=== PATIENT | female | born 1950 | race Caucasian/White ===

== ENCOUNTER 2016-07-01 02:15 | Emergency (ER) | payer MEDICARE, BC ==
--- NOTE | ~2016-07-01 | CR21 ---
[facility] A Service of [facility] & [facility] RADIOLOGY TEXT RESULTS PATIENT: THERESA MACIAS LOCATION: [facility] : 54 UNIT #: [id number] AGE: [address]: Gisselle Arauz APRN SEX: F ORDER DR: [id number] [facility] [address] [place], [place] [address] [id number] E MR#: [id number] Acc #: [id number] NAME: THERESA MACIAS. : 1950 SEX: F STUDY DATE/TIME: 07/01/2016 1:13 UNIT: [facility] ROOM: STUDY DESCRIPTION: CR Ankle Min 3 Views Rt Attending Physician: Gisselle Arauz A.P.R.N. Ordering Physician: Ed Doctor [id number] [facility] Primary Care Physician: Musa Herrera Aprn MEDICAL IMAGING REPORT This report is preliminary unless electronic signature is present EXAM Three-view right ankle HISTORY Tripped and fell at home tonight. Foot and ankle pain. Soft tissue swelling. FINDINGS 3 views of the right ankle demonstrates no acute fracture or dislocation. Mild soft tissue swelling over the midfoot. Please see separate right foot report for details. The talus and subtalar joint unremarkable. IMPRESSION 1. Negative right ankle. 2. Soft tissue swelling over the midfoot. Please see separate report of right foot for details. Dictated by... Kathleen Juarez M.D. THIS IS AN ELECTRONICALLY VERIFIED REPORT Kathleen Juarez M.D. at 07/01/2016 9:58 PM Partha TD: 07/01/2016 09:36 JOB #: [id number] MEDICAL IMAGING REPORT Page 1 of 1 COPY
--- NOTE | ~2016-07-01 | CR127 ---
[facility] A Service of [facility] RADIOLOGY TEXT RESULTS PATIENT: THERESA MACIAS LOCATION: [facility] : 54 UNIT #: [id number] AGE: [address]: iGsselle Arauz APRN SEX: F ORDER DR: [id number] [facility] [address] [place], [place] [address] [id number] E MR#: [id number] Acc #: [id number] NAME: THERESA MACIAS. : 1950 SEX: F STUDY DATE/TIME: 07/01/2016 1:11 UNIT: [facility] ROOM: STUDY DESCRIPTION: CR Foot Complete Min 3 View Rt Attending Physician: Gisselle Arauz A.P.R.N. Ordering Physician: Ed Doctor [id number] [facility] Primary Care Physician: Musa Herrera Aprn MEDICAL IMAGING REPORT This report is preliminary unless electronic signature is present EXAM Right foot 3 views HISTORY Tripped and fell at home tonight. Foot and ankle pain. COMPARISON Right foot films 09/16/2014. FINDINGS Three views of the right foot demonstrates lucency base of the first metatarsal concerning for intraarticular fracture. Also questionable widening of the first inner space could represent sequela of a Lisfranc ligament injury. Soft tissue swelling noted. Second, third, fourth and fifth metatarsal bases unremarkable. Normal midfoot alignment. IMPRESSION Subtle lucency and defect through the lateral aspect of the base the first metatarsal concerning for intermetatarsal base fracture. There is also questionable widening of the first interspace between the first and second metatarsal bases raising concern for possible Lisfranc ligament injury. Mild soft tissue swelling. Dictated by... Kathleen Juarez M.D. THIS IS AN ELECTRONICALLY VERIFIED REPORT Kathleen Juarez M.D. at 07/01/2016 9:58 PM Ervin TD: 07/01/2016 09:37 JOB #: [id number] [facility] A Service of [facility] RADIOLOGY TEXT RESULTS PATIENT: THERESA MACIAS LOCATION: [facility] #: [id number] : 54 UNIT #: [id number] AGE: [address]: Gisselle Arauz APRN SEX: F ORDER DR: MEDICAL IMAGING REPORT Page 1 of 1 COPY
[~2016-07-01 02:15] MED LIST: AMLODIPINE BESY10 MG PO; AMLODIPINE BESYL5 MG PO; ASPIRIN EC81 M1 PO; B COMPLEX1 CA1 PO; BUSPAR15 M1 PO; CARVEDILOL12.5 MG PO; COREG12.5 MG PO; DEXILANT60 MG PO; FENOFIBRATE145 MG PO; FOLIC ACID1 MG; FOLIC ACID1 MG PO; HYDROCHLOROTHIA25 MG PO; KAPIDEX60 MG; KAPIDEX60 MG PO; LASIX20 MG PO; LEVOTHROID88 MCG PO; LEVOTHYROXINE100 MCG PO; LEXAPRO20 MG PO; LIPOFEN150 MG PO; MULTI VITAMIN1 EACH PO; NORVASC PO; PANTOPRAZOLE SO40 MG PO; PRAVASTATIN SOD40 MG PO; PROBIOTIC1 EAC1 PO; REGLAN10 MG PO; SYNTHROID0.1 MG PO; TYLENOL #3 PO; UBIQUINOL100 MG PO; VALIUM2 M1; VIIBRYD40 MG PO; VITAMIN B-1000 MCG/1 SUBQ; VITAMIN B12-FO1 EACH PO; ZESTORETIC 20/11 TAB PO
== END 2016-07-01 03:00 | disposition home or self-care (01) ==
LOC: CED 02:15
DX: S92.311A Displaced fracture of first metatarsal bone, right foot, initial encounter for closed fracture (principal); K21.9 Gastro-esophageal reflux disease without esophagitis; I27.2 Other secondary pulmonary hypertension; Z85.41 Personal history of malignant neoplasm of cervix uteri; Z90.710 Acquired absence of both cervix and uterus; Z79.899 Other long term (current) drug therapy; Z88.0 Allergy status to penicillin; Z88.1 Allergy status to other antibiotic agents; Z88.8 Allergy status to other drugs, medicaments and biological substances; W01.0XXA Fall on same level from slipping, tripping and stumbling without subsequent striking against object, initial encounter; Y92.009 Unspecified place in unspecified non-institutional (private) residence as the place of occurrence of the external cause
CPT/HCPCS: 29505; 73610; 73630; 99283